=== PATIENT | male | born 1970 | race Caucasian/White ===

== ENCOUNTER 2016-12-03 06:12 | Day surgery (SDC) | payer OTHER ==
[2016-12-03] MEDS ORDERED: CELECOXIB 100 MG CAPSULE PO ONE (06:39)
[2016-12-03] MEDS ORDERED: ACETAMINOPHEN 1,000 MG/100 ML 100 ML IV ONE (06:39)
[2016-12-03] MEDS ORDERED: ceFAZolin 2 GM/50 ML 50 ML IV ONE (06:40)
[2016-12-03] MEDS ORDERED: LACTATED RINGERS 1,000 ML IV ONE ×2 (06:48→08:25)
[2016-12-03] MEDS ORDERED: MIDAZOLAM 2 MG/2 ML VIAL IVP ONE (08:00)
[2016-12-03] MEDS ORDERED: fentaNYL 100 MCG/2 ML VIAL IVP ONE (08:00)
[2016-12-03] MEDS ORDERED: ONDANSETRON 4 MG/2 ML VIAL IVP ONE (08:00)
[2016-12-03] MEDS ORDERED: LIDOCAINE-PF 2% 10 ML AMP SUBQ ONE (08:00)
[2016-12-03] MEDS ORDERED: PROPOFOL 200 MG/20 ML VIAL IVP ONE (08:00)
[2016-12-03] MEDS ORDERED: DEXAMETHASONE 4 MG/ML VIAL IVP ONE (08:00)
[2016-12-03] MEDS ORDERED: ROPIVACAINE 0.2% PF 20 ML AMPULE SUBQ ONE (08:07)
[2016-12-03] MEDS ORDERED: BUPIVACAINE 0.5% PF 10 ML VIAL SUBQ ONE (08:07)
[2016-12-03] MEDS ORDERED: MORPHINE PF 5 MG/10 ML AMP SUBQ ONE (08:07)
[2016-12-03] MEDS: HYDROmorphone 1 MG/ML SYRINGE ONE ×2 (08:55→09:04)
[2016-12-03] MEDS ORDERED: oxyCODONE 5 MG TABLET ONE (09:47)
[2016-12-03 10:11] VITALS: BP 115/73
--- NOTE | 2016-12-04 10:33 | OPERATIVE REPORT ---
[facility] MEDICAL RECORD: [id number] DATE OF SURGERY: 12/03/2016 00:00:00 PREOPERATIVE DIAGNOSIS: Right knee medial meniscus tear. POSTOPERATIVE DIAGNOSES 1. Right knee medial meniscus tear. 2. Right knee medial plica. NAME OF PROCEDURES 1. Right knee arthroscopy with medial meniscus debridement. 2. Right knee arthroscopy with medial plica excision. SURGEON: Isabel Charles MD ANESTHESIA: General via LMA. ANESTHESIA PROVIDER: Kj Rodriguez CRNA CIRCULATING NURSES 1. Anam Cardoza RN 2. Toya Roman RN 3. Mae Maier RN-CNOR HOUSE CLEANER SUPERVISOR: Meggan Roe. IV FLUIDS: 1000 mL lactated Ringer's. ESTIMATED BLOOD LOSS: 5 mL. ANTIBIOTICS: Ancef 2 g IV. TOURNIQUET: None. IMPLANTS: None. COMPLICATIONS: None. INDICATIONS: This is a 46-year-old male who developed right medial knee pain in July 2016. His primary care obtained an MRI that showed a medial meniscus tear. The patient continued to have symptoms despite activity modification, physical therapy and nonsteroidal antiinflammatories. The risks of surgery to include, but not limited to, infection, bleeding, damage to neurovascular structures, need for additional surgery, persistent or worsened pain, recurrent meniscus tear, continued degeneration of cartilage, decreased range of motion or stiffness, iatrogenic chondromalacia, deep vein thrombosis, pulmonary embolism, loss of limb and loss of life were discussed with the patient. All questions were answered, and informed consent was obtained. PROCEDURE: The patient was met in the preoperative hold area on the day of surgery, where we confirmed that we had the correct patient, planned to do the correct procedure, had the correct extremity, which was the right lower extremity identified. Prior to the patient receiving any medications, the operative extremity was initialed by the surgeon. The patient was then brought back to the operating room in stable condition and placed supine on the operating room table. All bony prominences were well-padded, and sequential compression device was placed on the nonoperative lower extremity. General anesthesia was then induced without complication, and an LMA was placed. Examination under anesthesia of the right knee showed range of motion from 0- 145 degrees of flexion. The patient had a 1A Scotty's, negative pivot shift and was stable to varus and valgus at 0 and 30 degrees. The right lower extremity was then prepped and draped in the usual sterile fashion. After final draping, an additional ChloraPrep was utilized on the operative site. Three minutes were allowed to elapse to enable the ChloraPrep to dry. We held a surgical timeout, where we confirmed that we had the correct patient, planned to do the correct procedure, had the correct extremity, which was the right lower extremity identified. We also confirmed that the patient received preoperative antibiotics, that no members of the operative team had any concerns and that all necessary gear was in the room and confirmed sterile. We began by making a standard anterolateral incision by first sharply incising the skin with a #11 blade and then introducing a blunt trocar into the knee. We began our exam in the patellofemoral joint. Immediately upon entering the patellofemoral joint, the medial plica was visualized. The remainder of the patellofemoral joint was without significant lesion. We then continued into the medial compartment of the knee where under direct visualization we made a standard anteromedial portal by first localizing with a spinal needle and then incising the skin with an 11 blade and introducing a blunt trocar to further establish the portal. We then introduced a probe and continued our exam. The medial femoral condyle, as well as medial tibial plateau, were notable for some mild chondromalacia with grade 2 changes. There was a medial meniscus tear in the posterior horn of the medial meniscus that involved a radial flap tear with degenerative changes on the edge. We then continued our exam into the notch, which showed an ACL that was intact, as well as an intact PCL. We then continued our examination into the lateral compartment, which was notable for softening of the medial femoral condyle and the medial tibial plateau consistent with grade 1 chondromalacia. The lateral meniscus was intact. We then introduced a sucker shaver and debrided the medial meniscus tear, as well as the medial plica. All arthroscopic instruments were then removed from the knee. The portals were closed utilizing 3-0 Monocryl in a buried fashion. We then placed Mastisol and Steri-Strips over the incisions. A total of 3 mL of 0.5% Marcaine without epinephrine was injected about the incisions. A mixture of 10 mg of Duramorph and 10 mg of 0.2% ropivacaine were then injected intraarticularly for postoperative analgesia. The wounds were then further dressed with Xeroform, plain gauze and an abdominal pad. MARICARMEN hose was then placed over this. All sponge counts and needle counts were correct at the conclusion of the case. The patient was awakened from general anesthesia without complication and taken to the PACU in stable condition. POSTOPERATIVE PLAN: The patient will be weightbearing as tolerated. He may range his knee as tolerated. I will see the patient back in 10-14 days for a wound check, at which time we will initiate physical therapy. Report edited and signed 12/05/2016 by Isabel Charles MD. JOB #: [id number] EXT JOB #:[id number] MTDD
== END 2016-12-03 06:13 | disposition home or self-care (01) ==
LOC: SDS 06:12
PROVIDERS: ATTEND Orthopaedic Surgery
PROC: 0SBC4ZZ Excision of Right Knee Joint, Percutaneous Endoscopic Approach (ICD-10-PCS; 2016-12-03)
PROC: 0SBC4ZZ Excision of Right Knee Joint, Percutaneous Endoscopic Approach (ICD-10-PCS; principal; 2016-12-03 07:30)
DX: S83.241A Other tear of medial meniscus, current injury, right knee, initial encounter (principal); M67.51 Plica syndrome, right knee; F17.210 Nicotine dependence, cigarettes, uncomplicated
CPT/HCPCS: 29881; A9270; J0131; J0690; J1170; J7120

== ENCOUNTER 2022-03-25 15:25 | Outpatient (CLI) | payer OTHER ==
--- NOTE | 2022-03-25 15:31 | XRAY Report ---
PROCEDURE: Shoulder 3 View RT INDICATIONS: RIGHT SHOULDER PAIN TECHNIQUE: 4 views of the shoulder were acquired. COMPARISON: 12/18/2021 shoulder MRI FINDINGS: No fracture or dislocation. Mild glenohumeral joint space narrowing. Moderate acromioclavicular joint space narrowing with hypertrophy superiorly acromioclavicular ligament. No suspicious lytic or blast ic osseous lesion. Partially visualized right lung normal. IMPRESSION: Mild glenohumeral and moderate acromioclavicular degenerative change. Reviewed by: Carmelo Alcala MD on 03/25/2022 3:29 PM PST Approved by: Carmelo Alcala MD on 03/25/2022 3:29 PM PST Station ID: [id number]
== END 2022-03-25 15:26 | disposition home or self-care (01) ==
LOC: DI.WOS 15:25
PROVIDERS: ATTEND Physician Assistant Surgical
DX: M19.011 Primary osteoarthritis, right shoulder (principal)